=== PATIENT | female | born 1975 | race Caucasian/White ===

== ENCOUNTER 2022-09-09 09:04 | Emergency (ER) | payer BC, SELFPAY ==
[2022-09-09 09:17] VITALS: BP 148/92; PULSE 83; RESP 18; TEMP 36.8; O2SAT 100; BMI 24.7
--- NOTE | 2022-09-09 09:31 | ED.GENADULT ---
HPI - General Adult General Chief complaint: Abdominal Pain Stated complaint: abd pain x5days sent by Huber ARCarlos Manuel Time Seen by Provider: 09/09/22 09:23 Source: patient Mode of arrival: Ambulatory History of Present Illness HPI narrative: Patient is a 46-year-old female who is here for evaluation of left lower quadrant abdominal pain/left-sided pelvic pain. Symptoms started approximately 1 week ago. Was a fairly sudden onset. She was sitting at work when the symptoms happened. The pain now seems to incorporate her entire lower abdomen. She is having some dysuria and the symptoms seemed to get worse when she urinates. It also gets worse when she is having a bowel movement. She is had some nausea which has improved but no vomiting. No fevers. She is had a partial hysterectomy but otherwise no other abdominal surgeries. She took some pain medication last evening which seemed to help her symptoms somewhat. She went to the walk-in clinic this morning was told to come to the emergency department for evaluation. Related Data Previous Rx's Medication Instructions Recorded hydrocodone 5 mg-acetaminophen 325 1 tab PO Q4-6H PRN pain #14 tabs 09/09/22 mg tablet Review of Systems Review of Systems ROS Unobtainable: All systems reviewed & are unremarkable except as noted in HPI and below Patient History Social History Smoking Status: Never smoker Smoking Status: Never smoker alcohol intake frequency: 0-2 drinks per day Substance Use Type: does not use Exam Initial Vital Signs Initial Vital Signs: Vital Signs Temperature 98.3 F 09/09/22 09:17 Pulse Rate 83 09/09/22 09:17 Respiratory Rate 18 09/09/22 09:17 Blood Pressure 148/92 H 09/09/22 09:17 Pulse Oximetry 100 09/09/22 09:17 Oxygen Delivery Method 09/09/22 09:17 HENMT Head: normal to inspection and normocephalic Resp Effort & Inspection: normal respiratory effort Auscultation: clear to auscultation bilaterally Cardio Rate: regular rate Rhythm: regular rhythm GI Inspection: normal to inspection and non-distended Palpation: soft and tender (Lower abdomen) Back/Spine/Pelvis Back: No CVA tenderness Skin General: no rashes or lesions noted Neuro General: patient alert, patient awake, patient oriented x3 and moves all extremities Speech: speech normal Extrem General: normal to inspection and capillary refill normal Psych Appearance: grossly normal and well kempt Course Orders Ordered: ED Orders 09/09/22 11:56 US pelvic complete Stat Discontinued Medications Sodium Chloride (Normal Saline 0.9%) 1,000 mls @ 1,000 mls/hr IV BOLUS ONE Stop: 09/09/22 10:35 Last Infusion: 09/09/22 12:30 Dose: 0 mls/hr Documented By: Admin: 09/09/22 10:25 Dose: 1,000 mls/hr Documented By: SLOAN Ibuprofen (Ibuprofen 400 Mg Tablet) 800 mg PO NOW ONE Stop: 09/09/22 12:01 Last Admin: 09/09/22 12:29 Dose: 800 mg Documented By: DELIO Vital Signs Vital signs: Vital Signs - 8 hr 09/09/22 12:33 09/09/22 12:34 09/09/22 12:34 Pulse Rate 73 69 Respiratory Rate Blood Pressure 135/82 135/82 Pulse Oximetry 100 100 Oxygen Delivery Method 09/09/22 15:11 Pulse Rate 66 Respiratory Rate 20 Blood Pressure 121/79 Pulse Oximetry 99 Oxygen Delivery Method Room Air Medical Decision Making Lab Data Lab results reviewed: Yes I reviewed the patient's lab results. Result diagrams: 09/09/22 09:45 09/09/22 09:45 Labs: Lab Results 09/09/22 09/09/22 Range/Units 09:45 09:45 WBC 9.1 (4.5-11.0) X10^3/uL RBC 4.08 (4.0-5.2) X10^6/uL Hgb 12.5 (12.0-16.0) g/dL Hct 37.8 (36-46) % MCV 92.5 (80-100) fL MCH 30.8 (26-34) PG MCHC 33.2 (30-36) % RDW 12.6 (11.6-14.8) % Plt Count 267 (150-400) X10^3/uL Neut % (Auto) 70.6 (50-75) % Lymph % (Auto) 19.2 L (25-40) % [place] % (Auto) 7.7 (3-14) % Eos % (Auto) 1.7 L (2-4) % Baso % (Auto) 0.8 (0-2) % Neut # (Auto) 6400 (3973-8670) /uL Lymph # (Auto) 1700 (6979-3366) /uL [place] # (Auto) 700 (0-900) /uL Eos # (Auto) 200 (0-450) /uL Baso # (Auto) 100 (0-100) /uL Sodium 139 (137-145) mmol/L Potassium 3.6 (3.4-5.1) mmol/L Chloride 106 (98-107) mmol/L Carbon Dioxide 25 (22-32) mmol/L BUN 9 (7-17) mg/dL Creatinine 0.68 (0.52-1.04) mg/dL Estimated GFR > 60 (>60) mL/min BUN/Creatinine Ratio 13.2 (6-22) Glucose 83 (70-100) mg/dL Calcium 8.9 (8.4-10.2) mg/dL Total Bilirubin 0.3 (0.2-1.3) mg/dL AST 20 (14-36) IU/L ALT 17 (<35) IU/L Alkaline Phosphatase 50 (38-126) U/L Total Protein 7.5 (6.3-8.2) g/dL Albumin 4.1 (3.5-5.0) g/dL Globulin 3.4 (1.7-4.1) g/dL Albumin/Globulin Ratio 1.2 (1.0-2.8) Lipase 65 (23-300) U/L Point of Care Testing Test Results Negative Urine Dip Bedside Urine Glucose Negative Bedside Urine Bilirubin - Negative Bedside Urine Ketone - Negative Urine Specific [place] 1.005 Bedside Urine Occult Blood - Negative Bedside Urine pH 6.5 Bedside Urine Protein - Negative Bedside Urine Urobilinogen - Negative Bedside Urine Nitrite - Negative Bedside Urine Leukocytes - Negative Esterase Point of care testing: Point of Care Testing Test Results Negative Urine Dip Bedside Urine Glucose Negative Bedside Urine Bilirubin - Negative Bedside Urine Ketone - Negative Urine Specific [place] 1.005 Bedside Urine Occult Blood - Negative Bedside Urine pH 6.5 Bedside Urine Protein - Negative Bedside Urine Urobilinogen - Negative Bedside Urine Nitrite - Negative Bedside Urine Leukocytes - Negative Esterase Imaging Data CT scan - abdomen/pelvis: Radiologist's Impression: [address] [address] [address] Scan Report Signed Patient: Jo-Ann Mcginnis MR#: [id number] : 1975 Acct:[id number] Age/Sex: 46 / F Date of Service: 09/09/22 Loc: ED Accession Number: [id number] ?? Procedure: CT abdomen pelvis w con Ordering Provider: Joe Singh D.O. PROCEDURE:? CT ABDOMEN PELVIS W CON ? INDICATIONS:? Left lower quadrant abdominal pain ? TECHNIQUE:? After the administration of intravenous contrast, axial sections acquired from the lung bases to the pubic symphysis.? Coronal and sagittal reformats were performed.? For radiation dose reduction, the following was used:? automated exposure control, adjustment of mA and/or kV according to patient size.? ? COMPARISON:? None. ? FINDINGS: ? Lower thorax: The lung bases are clear.? Heart size normal.? No hiatal hernia. ? Liver:? Normal in size and attenuation. No contour deformity present. ? Biliary system:? No calcified cholelithiasis or pericholecystic inflammation.? No intra or extrahepatic bile duct dilatation. ? Pancreas:? Unremarkable without mass or inflammation evident. ? Spleen:? Normal in size and density. ? Adrenals:? Normal morphology and density. ? Reproductive system:? In the left adnexa, there is a 4.6 x 5.0 x 4.3 cm solid heterogenous mass lesion .? .? There is an extension of the mass X extending superiorly along the pelvic sidewall.? Small amount of free fluid in the pelvis. ? Urinary system:? Normal renal size and attenuation. No renal calculi, hydronephrosis, or solid mass present.? Urinary bladder unremarkable. ? Gastrointestinal system:? The bowel is unremarkable without evidence of bowel obstruction or inflammation. The stomach appears unremarkable.? Moderate fecal debris in the right colon ? Appendix:? No findings to suggest acute appendicitis. ? Peritoneal spaces:? No mesenteric or retroperitoneal adenopathy.? No free air.? ? ? Vasculature:? The IVC, aorta and iliac vasculature are unremarkable. ? Abdominal wall:? Abdominal wall intact without evidence of ventral or inguinal hernias. ? Musculoskeletal:? Normal bone mineralization.? No acute fractures.? ? IMPRESSION: ? 5 cm left adnexal mass lesion with an extension along the left pelvic sidewall.? Inflammatory and neoplastic etiologies considered.? Follow-up ultrasound and or MRI could further evaluate ? Approved by: Glenroy Sarabia M.D. on 09/09/2022 at 10:43? US - abdomen: Radiologist's Impression: [address] [address] Ultrasound Report Signed Patient: Jo-Ann Mcginnis MR#: [id number] : 1975 Acct:[id number] Age/Sex: 46 / F Date of Service: 09/09/22 Loc: ED Accession Number: [id number] ?? Procedure: US pelvic complete Ordering Provider: Joe Singh D.O. PROCEDURE:? US PELVIC COMPLETE ? INDICATIONS:? LEFT ADNEXAL MASS ON CT ? TECHNIQUE:? Real-time scanning was performed of the pelvic organs, with image documentation.? Additional endovaginal scanning was necessary due to incomplete visualization of the adnexal and endometrial structures by transabdominal scanning.? ? COMPARISON:? None. ? FINDINGS:? ?? Uterus is surgically absent. ? In the left adnexa, there is a 7.0 x 3.9 x 5.4 cm vascular heterogenous mass present.? A separate left ovary is not visualized.? Within the mass, there is a 1.5 cm complex cyst. ? In the right adnexa, there is a 3.8 x 1.9 x 2.3 cm ovary containing a 1.9 x 1.8 cm hypoechoic nodular structure, probable hemorrhagic cyst. ? There is moderate echogenic fluid in the pelvis as well. ? ? IMPRESSION:? ? Heterogenous left adnexal mass lesion, suspicious for neoplasm.? Recommend follow-up MRI with contrast. ? Right ovarian complex cyst, probable hemorrhagic cyst, is associated with moderate echogenic fluid in the pelvis, possibly hemorrhagic fluid ? Approved by: Glenroy Sarabia M.D. on 09/09/2022 at 12:56? MDM Narrative Medical decision making narrative: Patient does have left-sided abdominal pain. CT scan and ultrasound concerning for left-sided adnexal mass. I did discuss this with the patient. I suspect this is the cause of her discomfort today. I did discuss the case with the bag grader clinic here at the hospital. They took the patient's information. They will contact the patient in the next 24-48 hours for follow-up. No indication for an emergent consultation with bag grader. Patient understands the importance with follow-up. She was given return precautions. She expressed understanding and agreement. Discharge Plan Departure Patient Disposition: Home Clinical Impression: Adnexal mass Activity Restrictions/Additional Instructions: I recommend that you contact your primary doctor for a follow-up because you may need referrals to see specialists. I did contact the [address] office and they should be contacting you for a follow-up with the finishing machine operator automatic providers. Their number is provided below. Return to the emergency department for any new or worsening symptoms. Prescriptions: New hydrocodone-acetaminophen 5-325 mg tablet 1 tab PO Q4-6H PRN (Reason: pain) Qty: 14 0RF Referrals: Lisa Kulkarni ARNP [Primary Care Provider] - Visit Report Forms: Patient Portal/API
--- NOTE | 2022-09-09 09:37 | DI.CT.S_ITS ---
PROCEDURE: CT ABDOMEN PELVIS W CON INDICATIONS: Left lower quadrant abdominal pain TECHNIQUE: After the administration of intravenous contrast, axial sections acquired from the lung bases to the pubic symphysis. Coronal and sagittal reformats were performed. For radiation dose reduction, the following was used: automated exposure control, adjustment of mA and/or kV according to patient size. COMPARISON: None. FINDINGS: Lower thorax: The lung bases are clear. Heart size normal. No hiatal hernia. Liver: Normal in size and attenuation. No contour deformity present. Biliary system: No calcified cholelithiasis or pericholecystic inflammation. No intra or extrahepatic bile duct dilatation. Pancreas: Unremarkable without mass or inflammation evident. Spleen: Normal in size and density. Adrenals: Normal morphology and density. Reproductive system: In the left adnexa, there is a 4.6 x 5.0 x 4.3 cm solid heterogenous mass lesion . . There is an extension of the mass X extending superiorly along the pelvic sidewall. Small amount of free fluid in the pelvis. Urinary system: Normal renal size and attenuation. No renal calculi, hydronephrosis, or solid mass present. Urinary bladder unremarkable. Gastrointestinal system: The bowel is unremarkable without evidence of bowel obstruction or inflammation. The stomach appears unremarkable. Moderate fecal debris in the right colon Appendix: No findings to suggest acute appendicitis. Peritoneal spaces: No mesenteric or retroperitoneal adenopathy. No free air. Vasculature: The IVC, aorta and iliac vasculature are unremarkable. Abdominal wall: Abdominal wall intact without evidence of ventral or inguinal hernias. Musculoskeletal: Normal bone mineralization. No acute fractures. IMPRESSION: 5 cm left adnexal mass lesion with an extension along the left pelvic sidewall. Inflammatory and neoplastic etiologies considered. Follow-up ultrasound and or MRI could further evaluate Approved by: Glenroy Sarabia M.D. on 09/09/2022 at 10:43
[2022-09-09 09:54] LABS: Add Manual Diff / Slide Review NO; Basophils Absolute Auto 100 /uL (0-100); Basophils Percent Auto 0.8 % (0-2); Eosinophils Absolute Auto 200 /uL (0-450); Eosinophils Percent Auto 1.7 % (2-4); Hematocrit 37.8 % (36-46); Hemoglobin 12.5 g/dL (12.0-16.0); Lymphocytes Absolute Auto 1700 /uL (1100-4500); Lymphocytes Percent Auto 19.2 % (25-40); Mean Corpuscular HGB Conc 33.2 % (30-36); Mean Corpuscular Hemoglobin 30.8 PG (26-34); Mean Corpuscular Volume 92.5 fL (80-100); Monocytes Absolute Auto 700 /uL (0-900); Monocytes Percent Auto 7.7 % (3-14); Neutrophils Absolute Auto 6400 /uL (1500-7000); Neutrophils Percent Auto 70.6 % (50-75); Platelet Count 267 X10^3/uL (150-400); Red Blood Cell Count 4.08 X10^6/uL (4.0-5.2); Red Cell Distribution Width 12.6 % (11.6-14.8); White Blood Cell Count 9.1 X10^3/uL (4.5-11.0)
[2022-09-09 10:20] LABS: Alanine Aminotransferase 17 IU/L (<35); Albumin 4.1 g/dL (3.5-5.0); Albumin Globulin Ratio 1.2 (1.0-2.8); Alkaline Phosphatase 50 U/L (38-126); Aspartate Aminotransferase 20 IU/L (14-36); BUN Creatinine Ratio 13.2 (6-22); Bilirubin Total 0.3 mg/dL (0.2-1.3); Blood Urea Nitrogen 9 mg/dL (7-17); Calcium 8.9 mg/dL (8.4-10.2); Carbon Dioxide 25 mmol/L (22-32); Chloride 106 mmol/L (98-107); Estimated Glomerular Filt Rate > 60 mL/min (>60); Globulin 3.4 g/dL (1.7-4.1); Glucose 83 mg/dL (70-100); HEMOLYSIS < 15 (0-50); Lipase 65 U/L (23-300); Potassium 3.6 mmol/L (3.4-5.1); Sodium 139 mmol/L (137-145); Total Protein 7.5 g/dL (6.3-8.2)
[2022-09-09] MEDS: SODIUM CHLORIDE 0.9% 1,000 ML 1000 ML IV (10:25)
--- NOTE | 2022-09-09 11:56 | DI.US.S_ITS ---
PROCEDURE: US PELVIC COMPLETE INDICATIONS: LEFT ADNEXAL MASS ON CT TECHNIQUE: Real-time scanning was performed of the pelvic organs, with image documentation. Additional endovaginal scanning was necessary due to incomplete visualization of the adnexal and endometrial structures by transabdominal scanning. COMPARISON: None. FINDINGS: Uterus is surgically absent. In the left adnexa, there is a 7.0 x 3.9 x 5.4 cm vascular heterogenous mass present. A separate left ovary is not visualized. Within the mass, there is a 1.5 cm complex cyst. In the right adnexa, there is a 3.8 x 1.9 x 2.3 cm ovary containing a 1.9 x 1.8 cm hypoechoic nodular structure, probable hemorrhagic cyst. There is moderate echogenic fluid in the pelvis as well. IMPRESSION: Heterogenous left adnexal mass lesion, suspicious for neoplasm. Recommend follow-up MRI with contrast. Right ovarian complex cyst, probable hemorrhagic cyst, is associated with moderate echogenic fluid in the pelvis, possibly hemorrhagic fluid Approved by: Glenroy Sarabia M.D. on 09/09/2022 at 12:56
[2022-09-09] MEDS: IBUPROFEN 400 MG TABLET 800 MG PO (12:29)
[2022-09-09 12:33] VITALS: BP 135/82; PULSE 73; O2SAT 100
[2022-09-09 12:34] VITALS: BP 135/82; PULSE 69; O2SAT 100
[2022-09-09 15:11] VITALS: BP 121/79; PULSE 66; RESP 20; O2SAT 99
== END 2022-09-09 15:15 | disposition home or self-care (01) ==
PROVIDERS: Emergency Provider Emergency Medicine; PCP Nurse Practitioner Family
DX: N94.89 Other specified conditions associated with female genital organs and menstrual cycle (principal); R11.0 Nausea; R10.2 Pelvic and perineal pain
CPT/HCPCS: 36415; 74177; 76830; 76856; 80053; 81003; 81025; 83690; 85025; 93975; 99284; 99285; Q9967

== ENCOUNTER → 2022-09-13 11:40 | Outpatient (CLI) | payer BC, SELFPAY ==
[2022-09-13 12:43] LABS: Cancer Antigen 125 11.9 U/mL (0-35)
[2022-09-16 13:47] LABS: Human Epididymis Prot 4 53.8 pmol/L (0.0-63.6)
== END ==
PROVIDERS: PCP Nurse Practitioner Family; Referring Provider Specialist; Visit Provider Specialist
DX: N94.89 Other specified conditions associated with female genital organs and menstrual cycle (principal)
CPT/HCPCS: 36415; 86304; 86305

== ENCOUNTER → 2022-10-25 10:03 | Outpatient (CLI) | payer BC, SELFPAY ==
--- NOTE | 2022-10-25 10:04 | DI.US.S_ITS ---
PROCEDURE: US PELVIC COMPLETE INDICATIONS: Follow-up ovarian cyst TECHNIQUE: Real-time scanning was performed of the pelvic organs, with image documentation. Additional endovaginal scanning was necessary due to incomplete visualization of the adnexal and endometrial structures by transabdominal scanning. COMPARISON: [facility], CT, CT ABDOMEN PELVIS W CON, 09/09/2022, 10:40. [facility], US, US PELVIC COMPLETE, 09/09/2022, 12:13. FINDINGS: Uterus: Surgically absent. Ovaries: The right ovary measures 4.6 x 2.2 x 2.2 cm, with a calculated ovarian volume of 11 cc. Redemonstrated heterogeneous structure, possible complex cyst measuring 1.6 x 1.7 x 1.3 cm, previously 1.8 x 1.9 x 1.3 cm, no substantial change. The left ovary measures 3.4 x 2.3 x 1.8 cm, with a calculated ovarian volume of 8 cc. Possible complex cyst measures 1.2 x 1.0 x 0.9 cm, previously 1.5 x 1.5 x 1.5 cm, slightly decreased in size. New possible ovoid heterogeneous structure within the ovary measuring 1.3 x 0.9 x 0.7 cm. Internal vascularity present on color Doppler images. Less than 12 follicles can be seen in each ovary. Other: No pathologic free abdominal or pelvic fluid. IMPRESSION: 1. Previously demonstrated small left ovarian complex cyst is slightly decreased in size. 2. Possible new left ovarian structure, possible complex cyst or corpus luteum, solid mass or artifact not excludable. 3. Possible right ovarian complex cyst is not substantially changed. 4. Consider continued imaging follow-up to assess for change such as in 6-8 weeks or other interval at clinical discretion. We strive to produce accurate, complete, and clear reports of imaging services. To assist us in improving patient care, this report was composed using standard report templates and voice recognition software. Therefore, it may contain abnormal punctuation, insertions and/or omissions. Occasional wrong-word or sound-alike substitutions may occur. Though we review the report and make efforts to correct it, we do recommend that the report be read carefully in proper context to recognize any text inaccuracies. Dictated by: Lawrence Mead M.D. on 10/25/2022 at 12:50 Approved by: Lawrence Mead M.D. on 10/25/2022 at 13:01
== END ==
PROVIDERS: PCP Nurse Practitioner Family; Referring Provider Specialist; Visit Provider Specialist
DX: N83.292 Other ovarian cyst, left side (principal); N94.89 Other specified conditions associated with female genital organs and menstrual cycle
CPT/HCPCS: 76830; 76856